=== PATIENT | male | born 1990 | race Caucasian/White ===

== ENCOUNTER 2021-09-11 20:58 | Emergency (ER) | payer BC ==
--- NOTE | 2021-09-12 23:37 | ER ---
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 Coronavirus screen: Vaccine status: Patient reports being unvaccinated. Ebola Screen: Patient negative for fever greater than or equal to 101.5 degrees Fahrenheit, and additional compatible Ebola Virus Disease symptoms. Initial Sepsis Screen: Does the patient meet any 2 criteria? No. Patient's initial sepsis screen is negative. Does the patient have a suspected source of infection? No. Patient's initial sepsis screen is negative. Risk Assessment: Do you want to hurt yourself or someone else? Patient reports no desire to harm self or others. Onset of symptoms was September 11, 2021. 21:09 Method Of Arrival: Ambulatory 21:09 Acuity: LOTUS 3 Triage Assessment: 21:19 General: Appears in no apparent distress. Behavior is cooperative. Pain: Denies pain. Neuro: Level of Consciousness is awake, alert, obeys commands, Oriented to person, place, time, situation, Denies weakness. Cardiovascular: Heart tones S1 S2 present Capillary refill < 3 seconds in bilateral fingers toes Clubbing of nail beds is absent Patient's skin is warm and dry. Pulses are 2+ in right radial artery, right dorsalis pedis artery, left radial artery and left dorsalis pedis artery Rhythm is sinus rhythm. Respiratory: Airway is patent Trachea midline Respiratory effort is even, unlabored, Respiratory pattern is regular, symmetrical. GI: Abdomen is flat, non-distended. : No signs and/or symptoms were reported regarding the genitourinary system. Derm: Skin is intact, with poor turgor Skin is dry, Skin is pink, warm \\T\\ dry. Skin temperature is warm. Historical: - Allergies: 21:15 No Known Allergies; mk - Home Meds: 21:15 None [Active]; mk - PMHx: 21:15 None; mk - Immunization history:: Adult Immunizations up to date. - Social history:: Smoking status: . Screenin:16 Abuse screen: Denies threats or abuse. Nutritional screening: No deficits noted. mk Tuberculosis screening: Never had TB. Possible symptoms: None Risk factors: None Intervention for positive screen: ED Physician notified. Fall Risk No fall in past 12 months (0 pts). No secondary diagnosis (0 pts). IV access (20 points). Ambulatory Aid- None/Bed Rest/Nurse Assist (0 pts). Gait- Normal/Bed Rest/Wheelchair (0 pts) Mental Status- Oriented to own ability (0 pts). Total Sheikh Fall Scale indicates No Risk (0-24 pts). Assessment: 21:18 Pain: Pain does not radiate. Pain currently is 8 out of 10 on a pain scale. Quality of mk pain is described as aching, Pain began gradually. 21:19 Cardiovascular: Heart tones S1 S2 present Capillary refill < 3 seconds in bilateral mk fingers toes Pulses are 2+ in right radial artery, right dorsalis pedis artery, left radial artery and left dorsalis pedis artery Rhythm is sinus rhythm Chest pain is described as diffuse, quality is sharp, is located in chest wall radiates to left began 1 hour prior to arrival episodes are continuous. 21:19 Neuro: Level of Consciousness is awake, alert, obeys commands, Oriented to person, mk place, time, situation, Bladder Blower are equal bilaterally Moves all extremities. Gait is steady, Speech is normal, Facial symmetry appears normal, Pupils are PERRLA, Pupil Size: 4 bilaterally. Respiratory: Airway is patent Trachea midline Respiratory effort is even, unlabored, Respiratory pattern is regular, symmetrical. GI: Abdomen is flat, non-distended, Bowel sounds present X 4 quads. Abd is soft and non tender X 4 quads. Derm: Skin is intact, is healthy with good turgor, Skin is dry, Skin is pink, warm \\T\\ dry. Skin temperature is warm. Musculoskeletal: Circulation, motion, and sensation intact. Capillary refill < 3 seconds, Range of motion: intact in all extremities. 23:20 Reassessment: this RN tried to call pt in the lobby to place in an ER bed, unable to mk find pt in the lobby. Vital Signs: 21:09 BP 126 / 74; Pulse 89; Resp 18; Temp 98.4; Pulse Ox 100% on R/A; ED Course: 21:19 Patient maintains SpO2 saturation greater than 95% on room air. mk 21:19 Arm band placed on. 22:05 No provider procedures requiring assistance completed. 22:51 Patient arrived in ED. 23:36 Zoraida Rocha, RN is Primary Nurse. 09/12 04:34 Triage completed. 04:38 EKG completed in triage. Results shown to . shelby Administered Medications: No medications were administered Outcome: 09/11 23:36 Patient left the ED. Signatures: Luisana Lea Zoraida Rocha, RN RN shelby Corrections: (The following items were deleted from the chart) 09/12 04:35 09/11 21:15 PMHx: None; [facility] 09/12 04:38 04:37 Patient maintains SpO2 saturation greater than 95% on room air. [facility] 04:38 04:37 No provider procedures requiring assistance completed. [facility] 06:27 09/11 21:19 Cardiovascular: Heart tones S1 S2 present Capillary refill < 3 seconds in bilateral fingers toes 09/12 06:27 04:39 Reassessment: this RN tried to call pt in the lobby to place in an ER bed, unable mk to find pt in the lobby.
== END 2021-09-11 23:36 | disposition left against medical advice (07) ==
LOC: ER 20:58
DX: R07.9 Chest pain, unspecified (principal); Z53.21 Procedure and treatment not carried out due to patient leaving prior to being seen by health care provider
CPT/HCPCS: 93005; 99284